=== PATIENT | female | born 1970 | race Caucasian/White ===

== ENCOUNTER 2019-05-28 06:07 | Inpatient (IN) ==
[2019-05-28] MEDS ORDERED: CeFAZolin Syr 2,000MG/20 ML 2,000 MG/20 ML SYRINGE IVPB ONE (06:50)
[2019-05-28] MEDS ORDERED: Ringers Solution, Lactated 1,000 ML IVC SCH (07:00)
[2019-05-28] MEDS ORDERED: *HR* FentaNYL (PF) 100 MCG/2 ML VIAL ONE ×2 (07:03→08:34)
[2019-05-28] MEDS ORDERED: *HR* Heparin 5,000 UNIT/ML VIAL ONE ×2 (07:04→09:35)
[2019-05-28] MEDS ORDERED: *HR* Propofol 200 MG/20 ML VIAL IVP ONE (07:04)
[2019-05-28] MEDS ORDERED: *HR* Succinylcholine 200 MG/10 ML VIAL IVP ONE (07:04)
[2019-05-28] MEDS ORDERED: Lidocaine -MPF 2% 2 ML VIAL ONE ×2 (07:04→07:47)
[2019-05-28] MEDS ORDERED: *HR* Rocuronium Bromide 50 MG/5 ML VIAL ONE (07:04)
[2019-05-28] MEDS ORDERED: *HR* Midazolam HCl 2 MG/2 ML VIAL ONE (07:04)
[2019-05-28] MEDS ORDERED: Heparin 1,000 UNITS/500 mL 500 ML ONE ×2 (07:13→07:18)
[2019-05-28] MEDS ORDERED: *HR* Phenylephrine 10 MG/ML VIAL ONE (07:13)
[2019-05-28] MEDS ORDERED: ceFAZolin 1,000 MG, Sodium Chloride IRRigation 1,000 ML IR ONE (07:45)
[2019-05-28] MEDS ORDERED: Ketorolac 30 MG/ML VIAL IVP ONE (07:50)
[2019-05-28] MEDS ORDERED: *HR* Promethazine 25 MG/ML VIAL IVP PRN (07:50)
[2019-05-28] MEDS ORDERED: Acetaminophen IV 1,000 MG/100 ML INFUS..BTL IVPB ONE (07:50)
[2019-05-28] MEDS ORDERED: *HR* HYDROmorphone (PF) 1 MG/ML SYRINGE IVP PRN (07:50)
[2019-05-28] MEDS ORDERED: Albuterol 2.5 MG/3 ML NEBULIZER IH ONE (07:50)
[2019-05-28] MEDS ORDERED: *HR* OxyCODONE Immed Rel 5 MG TABLET PO PRN (07:50)
[2019-05-28] MEDS ORDERED: Ondansetron 4 MG/2 ML VIAL IVP ONE (07:50)
[2019-05-28] MEDS ORDERED: Dexamethasone 4 MG/ML VIAL ONE (08:24)
[2019-05-28] MEDS ORDERED: Ondansetron 4 MG/2 ML VIAL ONE ×2 (08:24→11:11)
[2019-05-28] MEDS ORDERED: *HR* HYDROMORPHONE 2 MG/ML VIAL ONE (09:34)
[2019-05-28] MEDS ORDERED: Neostigmine Methylsulfate 3 MG/3 ML SYRINGE ONE (10:59)
[2019-05-28] MEDS ORDERED: *HR* Labetalol 20 MG/4 ML SYRINGE IVP PRN (12:34)
[2019-05-28] MEDS ORDERED: OXYMORPHONE HCL 10 MG PO PRN (12:34)
[2019-05-28] MEDS ORDERED: DICLOFENAC SODIUM 1 GM TP PRN (12:34)
[2019-05-28] MEDS ORDERED: SUMAtriptan succinate 50 MG TABLET PO PRN (12:34)
[2019-05-28] MEDS ORDERED: Ondansetron 4 MG/2 ML VIAL IVP PRN (12:34)
[2019-05-28] MEDS ORDERED: Naloxone 0.4 MG/ML INJ IVP PRN (12:34)
[2019-05-28] MEDS: OxyCODONE Immed Rel 15 MG, OxyCODONE Immed Rel 5 MG PO PRN ×2 (15:44→22:32)
[2019-05-28] MEDS: Levothyroxine 25 MCG TABLET PO SCH (17:04)
[2019-05-28] MEDS ORDERED: Trolamine Salicylate/Aloe Vera 35.4 GM TUBE TP PRN (17:25)
[2019-05-28] MEDS ORDERED: NON-FORMULARY MEDICATION 1 EACH EACH (Glucosamn/Condroitn/C/Mn/Boron [Cvs Glucosamine Chon PO SCH (18:00)
[2019-05-28] MEDS: Baclofen 10 MG TABLET PO PRN (20:10)
[2019-05-29] MEDS: OxyCODONE Immed Rel 15 MG, OxyCODONE Immed Rel 5 MG PO PRN ×3 (05:28→17:54)
[2019-05-29] MEDS: Levothyroxine 25 MCG TABLET PO SCH (05:28)
[2019-05-29 05:50] LABS: Basophils % 0.1 %; Eosinophils % 0.1 %; Hematocrit 28.9 % (35.3-44.9); Hemoglobin 9.5 g/dL (11.5-15.4); Immature Granulocytes % 0.3 % (0-4); Lymphocytes # 2.3 K/mcL (0.6-4.6); Lymphocytes % 19.3 %; Mean Corpuscular HGB Conc 32.9 g/dL (31.6-35.5); Mean Corpuscular Hemoglobin 29.9 pg (28.0-33.3); Mean Corpuscular Volume 90.9 fL (83.0-100.0); Mean Platelet Volume 8.7 fL (9.4-12.4); Monocytes % 8.2 %; Neutrophils # 8.4 K/mcL (1.6-8.9); Platelet Count 286 K/mcL (140-400); Red Blood Count 3.18 M/mcL (3.82-4.97); Red Cell Distribution Width 13.7 % (11.5-14.5); White Blood Count 11.6 K/mcL (4.3-11.1)
[2019-05-29 06:13] LABS: BUN/Creatinine Ratio 17 (6-26); Blood Urea Nitrogen 9 mg/dL (6-20); Calcium 8.7 mg/dL (8.6-10.3); Carbon Dioxide 26 mEq/L (23-29); Chloride 103 mEq/L (98-107); Glucose 134 mg/dL (70-105); Osmolality,Calculated 287 (280-300); Potassium 3.5 mEq/L (3.5-5.1); Sodium 138 mEq/L (136-145); eGFR For African Americans > 60 (> 60); eGFR For Non-African Americans > 60 (> 60)
[2019-05-29] MEDS: Baclofen 10 MG TABLET PO PRN ×2 (08:45→17:54)
[2019-05-29] MEDS: Aspirin Enteric Coated 81 MG Tablet PO SCH (08:45)
[2019-05-29] MEDS ORDERED: CIDER VINEGAR PO SCH (09:00)
[2019-05-29] MEDS ORDERED: ACTIVATED CHARCOAL PO SCH (09:00)
[2019-05-30 05:26] LABS: Hematocrit 26.6 % (35.3-44.9); Hemoglobin 8.5 g/dL (11.5-15.4)
[2019-05-30] MEDS: Levothyroxine 25 MCG TABLET PO SCH (06:15)
[2019-05-30 07:36] VITALS: BP 107/71
[2019-05-30] MEDS: Aspirin Enteric Coated 81 MG Tablet PO SCH (08:04)
[2019-06-25] MEDS ORDERED: GALCANEZUMAB GNLM SQ SCH (09:00)
== END 2019-05-30 12:47 | disposition home or self-care (01) | DRG 253 ==
LOC: SAMDAY 06:07 → ICNU 12:34 → 2NNU 05-29 02:47
PROVIDERS: ADMIT Surgery Vascular Surgery; ATTEND Surgery Vascular Surgery

== ENCOUNTER 2019-06-25 06:08 | Inpatient (IN) ==
[~2019-06-25 06:08] MED LIST: ceFAZolin 1,000 MG, Sodium Chloride IRRigation 1,000 ML IR ONE
[2019-06-25] MEDS ORDERED: CeFAZolin Syr 2,000MG/20 ML 2,000 MG/20 ML SYRINGE IVPB ONE (06:39)
[2019-06-25] MEDS ORDERED: Ringers Solution, Lactated 1,000 ML IVC SCH (06:45)
--- NOTE | 2019-06-25 07:06 | Anesthesia Evaluation PreOp ---
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 09/28/15 [Rx] Activated Charcoal [Charcoal, Activated] 540 mg PO DAILY 05/16/19 [History] Atorvastatin [Lipitor] 10 mg PO QPM 05/16/19 [History] Baclofen [Lioresal] 10 mg PO TID PRN 05/16/19 [History] Galcanezumab-Gnlm [Emgality] 240 mg SQ QMONTH 05/16/19 [History] Glucosamn/Condroitn/C/Mn/[place] [[facility] Glucosamine Chondroit Cplt] 2,000 mg PO QPM 05/16/19 [History] Naproxen Sodium [Aleve] 220 mg PO QAM PRN 05/16/19 [History] Omeprazole [PriLOSEC] 20 mg PO QPM 05/16/19 [History] SUMAtriptan succinate [Imitrex] 50 mg PO AD PRN 05/16/19 [History] Cider Vinegar [Apple Cider Vinegar] 1,000 mg PO DAILY 05/28/19 [History] Diclofenac Sodium [Voltaren] 1 gm TP 3-4XD PRN 05/28/19 [History] Duloxetine HCl [Cymbalta] 60 mg PO QPM 05/28/19 [History] Estradiol 2 mg PO QPM 05/28/19 [History] Levothyroxine Sodium 25 mcg PO QPM 05/28/19 [History] Oxymorphone HCl [Opana] 20 mg PO HS 05/28/19 [History] Prochlorperazine Maleate [Compazine] 10 mg PO Q8H PRN 05/28/19 [History] Amlodipine Besylate 2.5 mg PO DAILY 06/25/19 [History] Cholecalciferol (D-3) [Vitamin D] 2,000 unit PO DAILY 06/25/19 [History] Allergy/AdvReac Type Severity Reaction Status Date / Time meloxicam Allergy Rash Verified 05/28/19 06:47 - Meds/Allergy Pre-op Review Medications Reviewed: Yes Allergies Reviewed: Yes Beta Blockers on Current Med List: No Anesthesia Results - Labs Laboratory Tests 05/29/19 05/29/19 05/30/19 05:39 05:39 03:30 WBC 11.6 H Hgb 8.5 L Hct 26.6 L Plt Count 286 PT INR APTT Sodium 138 Potassium 3.5 BUN 9 Creatinine 0.54 L 06/20/19 18:08 WBC Hgb Hct Plt Count PT 10.6 INR 0.9 APTT 35.0 Sodium Potassium BUN Creatinine - Imaging EKG: report reviewed (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 There is no significant bronchodilator response Lung volumes: SVC is normal Diffusion: Normal gas change in DLCO corrected for hemoglobin 25.24, 110% predicted Flow volume loop: Normal 11/09/2015 Limited Echo Indications: Takotsubo cardiomyopathy Impressions: LVEF 60%. Normal left ventricular structure and function. Compared to prior reports, EF has now normalized. 09/23/2015 Procedures Performed: LEFT HEART CATH IABP INSERTION, PERCUTANEOUS Indications: Cardiogenic shock, Cardiac arrest, CHF Impressions: There is mild one vessel coronary artery disease. There is severe LV Dysfunction EF 10% consistent with Takotsubo cardiomyopathy Non-ischemic cardiomyopathy An IABP was inserted for hemodynamic support for cardiogenic shock requiring multiple vasopressors Recommendations: Optimal medical therapy of patient's disease. Aggressive risk factor modification. 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
[2019-06-25] MEDS ORDERED: Heparin 1,000 UNITS/500 mL 1,000 ML ONE (07:09)
[2019-06-25] MEDS ORDERED: Lidocaine -MPF 2% 2 ML VIAL ONE (07:11)
[2019-06-25] MEDS ORDERED: *HR* Midazolam HCl 2 MG/2 ML VIAL ONE (07:11)
[2019-06-25] MEDS ORDERED: Neostigmine Methylsulfate 3 MG/3 ML SYRINGE ONE (07:11)
[2019-06-25] MEDS ORDERED: *HR* Rocuronium Bromide 50 MG/5 ML VIAL ONE (07:11)
[2019-06-25] MEDS ORDERED: Ondansetron 4 MG/2 ML VIAL ONE (07:11)
[2019-06-25] MEDS ORDERED: Dexamethasone 4 MG/ML VIAL ONE (07:11)
[2019-06-25] MEDS ORDERED: *HR* FentaNYL (PF) 100 MCG/2 ML VIAL ONE ×2 (07:11→09:23)
[2019-06-25] MEDS ORDERED: *HR* Propofol 200 MG/20 ML VIAL IVP ONE (07:12)
--- NOTE | 2019-06-25 07:33 | History & Physical Report ---
Date of Encounter: 06/25/19 Time of Encounter: 07:30 24 Hour HP Update - Instructions Instructions: If the History and Physical is less than 30 days old and was completed prior to A.M. admission and or procedure and has NOT been updated on calendar day of procedure please complete this update prior to performing procedure. - Update Patient reports changes in Medical Condition: No Changes in examination, assessment, or condition: No Changes in Medication: No Preop tests/diagnostics Reviewed: Yes Surgery Remains Indicated: Yes Consent for Planned Operative Procedure(s) Verified: Yes - Pre-Operative Checklist Preoperative Checklist Indicated: Yes Prophylactic Antibiotic Ordered: Yes Home Medications Include Beta Charles: No Beta Charles Taken Today (Day of Surgery): No Beta Charles Taken Yesterday (Day Prior to Surgery): No Is VTE Prophylaxis Indicated?: Yes
[2019-06-25] MEDS ORDERED: Ondansetron 4 MG/2 ML VIAL IVP ONE (07:51)
[2019-06-25] MEDS ORDERED: *HR* HYDROmorphone (PF) 1 MG/ML SYRINGE IVP PRN (07:51)
[2019-06-25] MEDS ORDERED: *HR* OxyCODONE Immed Rel 5 MG TABLET PO PRN ×2 (07:51→13:58)
[2019-06-25] MEDS ORDERED: EPHEDrine 50 MG/ML VIAL ONE (08:15)
[2019-06-25] MEDS ORDERED: *HR* Heparin 5,000 UNIT/ML VIAL ONE (08:42)
[2019-06-25] MEDS ORDERED: Lidocaine HCL 4 ML Topical Solution (Laryng-O-Jet Kit Sterile Pak) TP ONE (10:23)
[2019-06-25] MEDS ORDERED: *HR* PHENYLEPHRINE 1,000 MCG/10 ML SYRINGE IVP ONE (11:41)
[2019-06-25] MEDS ORDERED: *HR* HYDROMORPHONE 2 MG/ML VIAL ONE (11:54)
--- NOTE | 2019-06-25 12:46 | Operative Note ---
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 Enrique Llamas is a 48-year-old white female with a very complicated vascular history dating back to an intraoperative cardiac arrest with treatment requiring a left sided intra-aortic balloon pump. 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 she underwent a number procedures eventually requiring a right to left femoral-femoral bypass. This graft was found to have thrombosed and was taken to surgery for graft thrombectomy one month ago. On follow-up exam the graft rethrombosed. To remedy this she comes back to the OR for a redo thrombectomy. Procedure The patient was brought to the operating room after informed consent was obtained. The abdomen groin and left lower extremity was sterilely prepped and draped after general endotracheal anesthesia was established. A timeout protocol was observed. An oblique incision was made in the left groin separate from the recent operation. This was more medial and superior. Dissection was carried down to reveal the graft. The area of the femoral anastomosis was also exposed. Heparin was given intravenously. A transverse incision was made on the graft and acute thrombus was found in the graft. A 4 [place] Karlo catheter was used to thrombectomize the graft. It was also used to pass through the distal left femoral anastomosis. This proved to be problematic requiring further dissection at the left groin. This was the area that had just undergone surgery and endarterectomy with patch approximately 1 month ago so there was significant inflammatory tissue here. Dissection was then made extensively of the left groin. The graft was opened further and then the area was inspected for any residual debris or intimal hyperplasia. A bovine pericardial patch angioplasty was then sewn into position over the left groin area. The original graftotomy was then checked and flushed again and this was approximated using 6-0 Prolene. After performing this the clamps removed and pulsatile flow was restored through the graft. However on my evaluation I thought the pulsatility through the graft was less than what had been observed one month ago and also was in adequate for appropriate distal perfusion. Therefore it was decided to open the right groin looking for source of inflow stenosis. A second incision was then made in the right groin. Dissection was carried down to reveal the graft and the [place] femoral vessels. These were controlled very additional bolus of heparin was administered. A longitudinal incision was then made over the cord of the right femoral donor anastomosis. Chronic thrombus and intimal hyperplasia were encountered here. There is also significant intimal hyperplasia at the orifice of the graft on the artery. Therefore a formal endarterectomy was necessary using a septal dissector. This allowed me to remove all of the intimal hyperplasia and restore a normal flow pattern through the donor anastomosis. With this done a bovine pericardial patch angioplasty was performed over this area to promote flow and to reduce the risk of recurrent stenosis. After appropriate backbleeding and flushing the clamps removed and pulsatile flow was then restored through the graft and into the left lower extremity. The patient had an excellent pulse through the graft and Doppler signals were identified at the left ankle. The incisions were then irrigated with antibody containing solution. Local was infiltrated into both incisions using half percent Marcaine. The wounds were then closed in layers using absorbable suture. There were no intraoperative complications. The patient tolerated the procedure well. The sponge count and needle counts was correct. The patient was extubated in the operating room and taken to the recovery room in stable condition.
--- NOTE | 2019-06-25 13:34 | Anesthesia Evaluation Post Op ---
Date of Encounter: 06/25/19 Time of Encounter: 13:32 - Vital Signs Vital Signs: Vital Signs/O2 Sat, Most Current Temp Pulse Resp BP Pulse Ox 98.2 F 81 19 94/69 100 06/25/19 13:21 06/25/19 13:21 06/25/19 13:21 06/25/19 13:21 06/25/19 13:21 - Lungs Lungs: Clear Ascult./Percussion - Airway Airway: Non-obstructed - Cardiovascular Regular Rate - Mental Status Mental Status: Alert & Oriented, Answers Appropriately - Pain Pain Scale: 4 Pain Scale used: Numeric (1 - 10) - Nausea Vomiting Nausea Vomiting: Not Present - Hydration Hydration: Ice chips, Mclean catheter - Discharge PostOp Status: Transfer Patient to floor
[2019-06-25] MEDS ORDERED: Acetaminophen 325 MG TABLET PO PRN (13:58)
[2019-06-25] MEDS ORDERED: Ondansetron 4 MG/2 ML VIAL IVP PRN (13:58)
[2019-06-25] MEDS ORDERED: Naloxone 0.4 MG/ML INJ IVP PRN (13:58)
[2019-06-25] MEDS ORDERED: *HR* Labetalol 20 MG/4 ML SYRINGE IVP PRN (13:58)
[2019-06-25] MEDS ORDERED: SUMAtriptan succinate 50 MG TABLET PO PRN (13:58)
[2019-06-25] MEDS ORDERED: DICLOFENAC 1% GEL TP PRN (13:58)
[2019-06-25] MEDS ORDERED: Baclofen 10 MG TABLET PO PRN (13:58)
[2019-06-25] MEDS: *HR* HYDROcodone/Acet 5/325 mg TABLET PO PRN (15:38)
[2019-06-25] MEDS ORDERED: NON-FORMULARY MEDICATION 1 EACH EACH (Glucosamn/Condroitn/C/Mn/Boron [Cvs Glucosamine Chon PO SCH (18:00)
[2019-06-25] MEDS ORDERED: Levothyroxine 25 MCG TABLET PO SCH (18:00)
[2019-06-25] MEDS ORDERED: OXYMORPHONE HCL 20 MG PO SCH (21:00)
[2019-06-26 02:36] LABS: Basophils % 0.1 %; Hematocrit 23.1 % (35.3-44.9); Hemoglobin 7.2 g/dL (11.5-15.4); Immature Granulocytes % 0.4 % (0-4); Lymphocytes # 1.6 K/mcL (0.6-4.6); Lymphocytes % 14.9 %; Mean Corpuscular HGB Conc 31.2 g/dL (31.6-35.5); Mean Corpuscular Hemoglobin 28.5 pg (28.0-33.3); Mean Corpuscular Volume 91.3 fL (83.0-100.0); Mean Platelet Volume 8.7 fL (9.4-12.4); Monocytes # 0.7 K/mcL (0.0-1.3); Monocytes % 6.5 %; Neutrophils # 8.3 K/mcL (1.6-8.9); Platelet Count 294 K/mcL (140-400); Red Blood Count 2.53 M/mcL (3.82-4.97); Red Cell Distribution Width 13.5 % (11.5-14.5); Segmented Neutrophils % 78.1 %; White Blood Count 10.6 K/mcL (4.3-11.1)
[2019-06-26 02:56] LABS: BUN/Creatinine Ratio 13 (6-26); Blood Urea Nitrogen 10 mg/dL (6-20); Calcium 8.4 mg/dL (8.6-10.3); Carbon Dioxide 26 mEq/L (23-29); Chloride 103 mEq/L (98-107); Glucose 116 mg/dL (70-105); Osmolality,Calculated 284 (280-300); Potassium 4.1 mEq/L (3.5-5.1); Sodium 137 mEq/L (136-145); eGFR For African Americans > 60 (> 60); eGFR For Non-African Americans > 60 (> 60)
[2019-06-26] MEDS ORDERED: Levothyroxine 25 MCG TABLET PO SCH (06:30)
--- NOTE | 2019-06-26 08:43 | Discharge Summary ---
Date of Encounter: 06/26/19 Time of Encounter: 08:40 - Discharge Diagnosis (1) Claudication of left lower extremity Priority: Primary Status: Acute Comments: Patient has a long and complicated history revolving around a left external iliac artery occlusion. The patient had rethrombosis of the right to left femoral-femoral bypass graft. Patient was readmitted for re-thrombectomy of the graft during this admission. (2) Acute on chronic blood loss anemia Priority: Secondary Status: Acute Comments: Patient has acute on chronic anemia. Patient will be given iron supplement to assist in her regeneration of her red blood cells. Infusion is not anticipated at this time. - Hospital Course Hospital course: Ms. Enrique Llamas is a 48 year old female With complicated vascular history surrounding left external iliac artery occlusion secondary to intra-aortic balloon from a number of years ago following cardiogenic shock with intraoperative cardiac arrest. The patient had rethrombosed her right to left femoral-femoral bypass graft. She was admitted and return to surgery at this time for a re-thrombectomy and revision. This was performed yesterday under general endotracheal anesthesia. There were no perioperative complications. The patient tolerated the procedure well. Postoperatively her feet were warm. She had Doppler signals 4. The patient was tolerating a diet and was able to ambulate. Because of the recurrent thrombosis the patient will be started on Xarelto therapy. Because of her acute on chronic anemia she will be given temporary iron supplement therapy as an outpatient. Instructions were given to the patient regarding diet and exercise and wound care as well as the new medications prior to discharge. All questions were answered prior to discharge. - Time Spent with Patient Total time spent providing and/or coordinating discharge services: - Discharge Medications Prescriptions: No Action Aspirin Enteric Coated [Aspirin EC] 81 mg PO DAILY #30 tablet.dr Prudencio Dunham [Kimmie Cider Vinegar] 1,000 mg PO DAILY Diclofenac Sodium [Voltaren] 1 gm TP 3-4XD PRN PRN Reason: Pain Duloxetine HCl [Cymbalta] 60 mg PO QPM Estradiol 2 mg PO QPM Levothyroxine Sodium 25 mcg PO QPM Oxymorphone HCl [Opana] 20 mg PO HS Prochlorperazine Maleate [Compazine] 10 mg PO Q8H PRN PRN Reason: Nausea Amlodipine Besylate 2.5 mg PO DAILY Cholecalciferol (D-3) [Vitamin D] 2,000 unit PO DAILY SUMAtriptan succinate [Imitrex] 50 mg PO AD PRN PRN Reason: Migraine Headache Omeprazole [PriLOSEC] 20 mg PO QPM Naproxen Sodium [Aleve] 220 mg PO QAM PRN PRN Reason: Mild To Moderate Pain Glucosamn/Condroitn/C/Mn/[place] [[facility] Glucosamine Chondroit Cplt] 2,000 mg PO QPM Galcanezumab-Gnlm [Emgality] 240 mg SQ QMONTH Baclofen [Lioresal] 10 mg PO TID PRN PRN Reason: Muscle Spasm Atorvastatin [Lipitor] 10 mg PO QPM Activated Charcoal [Charcoal, Activated] 540 mg PO DAILY Home Medications: Aspirin Enteric Coated [Aspirin EC] 81 mg PO DAILY #30 tablet. 09/28/15 [Rx] Activated Charcoal [Charcoal, Activated] 540 mg PO DAILY 05/16/19 [History] Atorvastatin [Lipitor] 10 mg PO QPM 05/16/19 [History] Baclofen [Lioresal] 10 mg PO TID PRN 05/16/19 [History] Galcanezumab-Gnlm [Emgality] 240 mg SQ QMONTH 05/16/19 [History] Glucosamn/[place]n/C/Mn/[place] [[facility] Glucosamine Chondroit Cplt] 2,000 mg PO QPM 05/16/19 [History] Naproxen Sodium [Aleve] 220 mg PO QAM PRN 05/16/19 [History] Omeprazole [PriLOSEC] 20 mg PO QPM 05/16/19 [History] SUMAtriptan succinate [Imitrex] 50 mg PO AD PRN 05/16/19 [History] Cider Vinegar [Apple Cider Vinegar] 1,000 mg PO DAILY 05/28/19 [History] Diclofenac Sodium [Voltaren] 1 gm TP 3-4XD PRN 05/28/19 [History] Duloxetine HCl [Cymbalta] 60 mg PO QPM 05/28/19 [History] Estradiol 2 mg PO QPM 05/28/19 [History] Levothyroxine Sodium 25 mcg PO QPM 05/28/19 [History] Oxymorphone HCl [Opana] 20 mg PO HS 05/28/19 [History] Prochlorperazine Maleate [Compazine] 10 mg PO Q8H PRN 05/28/19 [History] Amlodipine Besylate 2.5 mg PO DAILY 06/25/19 [History] Cholecalciferol (D-3) [Vitamin D] 2,000 unit PO DAILY 06/25/19 [History] Allergies/Adverse Reactions: Allergy/AdvReac Type Severity Reaction Status Date / Time meloxicam Allergy Rash Verified 05/28/19 06:47 Date of admission: 06/25/19 13:30 Primary care physician: Guanako Cruz MD Consults: None Procedure(s) Performed: Redo thrombectomy of right to left femoral-femoral bypass graft with revision of bilateral femoral anastomoses with right endarterectomy and bilateral patch angioplasties with bovine pericardium Discharging clinician: Delfino Roberts Anticipated date of discharge: 06/26/19 Exam Vital Signs, Last 4 Hours Temp Pulse Resp BP Pulse Ox 06/26/19 07:27 98.0 F 76 16 91/56 98 General: Present: Conversant, No Apparent Distress, Well developed, Well nourished HEENT: Present: Atraumatic Neck: Absent: JVD Cardiac: Present: Reg Rate and Rhythm Neuro: Present: Alert and responsive, No focal deficits noted, Cranial nerves grossly intact Abdomen: Present: Soft Vascular: Present: Color/Temperature (Feet were warm bilaterally. Skin is pale bilaterally), Surgical incisions (Dressings over the bilateral groin incisions were clean and dry. No signs of bleeding.), Other (Patient had Doppler signals times for the level of the ankles.). 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 Keep surgical sites dry for a total of 5 days following surgery. Patient may ambulate inside and outside. Patient may use stairs as tolerated. No lifting greater than 10 pounds. No automobile driving. No manual labor. Begin new medications of Ferrous Sulfate (iron supplement for anemia) and Xarelto(anti coagulant) - Diet and Activity Activity: increase activity as tolerated Diet: advance to your usual diet
[2019-06-26] MEDS ORDERED: Cholecalciferol (D-3) 1,000 UNIT (25MCG) TABLET PO SCH (09:00)
[2019-06-26] MEDS ORDERED: amLODIPine 5 MG TABLET PO SCH (09:00)
[2019-06-26] MEDS ORDERED: Aspirin Enteric Coated 81 MG Tablet PO SCH (09:00)
[2019-06-26] MEDS ORDERED: ACTIVATED CHARCOAL PO SCH (09:00)
[2019-06-26] MEDS ORDERED: CIDER VINEGAR PO SCH (09:00)
[2019-06-26 12:05] VITALS: BP 91/55
[2019-06-26] MEDS: *HR* HYDROcodone/Acet 5/325 mg TABLET PO PRN (14:07)
== END 2019-06-26 14:30 | disposition home or self-care (01) | DRG 253 ==
LOC: SAMDAY 06:08 → 2NNU 13:30
PROVIDERS: ADMIT Surgery Vascular Surgery; ATTEND Surgery Vascular Surgery